=== PATIENT | male | born 1955 | race Caucasian/White ===

== ENCOUNTER 2020-03-06 09:19 | Observation (INO) | payer MEDICARE, MEDICAID ==
[~2020-03-06] VITALS: Ht 175.3 cm; Wt 113.4 kg
[2020-03-06] VITALS (12 sets, daily range): BP systolic 97–167; BP diastolic 61–75
--- NOTE | ~2020-03-06 | H ---
[address] [address] HISTORY AND PHYSICAL Name: YING MAHAN Room: [address] Bam Hewitt#: [id number] Admission: 03/06/20 Attend Phys: Fab Rosario MD Discharge: 03/07/20 Date of : 53 Report #: [id number] THIS REPORT FOR: cc: Singh Freeman MD, Anthony MD ~ [facility],Medical Records Staff Please refer to the History and Physical performed in the physician's office. By: 1130Medical Records Staff [facility] /JOE
[~2020-03-06 09:19] MED LIST: ASPIR 8181 MG PO; ATROVENT HFA14 GM INH; CARVEDILOL12.5 MG PO; CEFDINIR300 MG PO; CRESTOR20 MG PO; EFFIENT10 MG PO; GLIPIZIDE 10 MG10 MG PO; LEVEMIR100 UNIT/1; LOSARTAN POTAS100 MG PO; NASONEX17 GM NASAL; NEURONTIN100 MG PO; NITROGLYCERIN0.4 MG SUBLING; NOVOLOG100 UNIT/M SUBQ; ROSUVASTATIN CA20 MG PO; TRAMADOL 50 MG50 MG PO
[2020-03-06 09:55] LABS: HEMATOCRIT 27.1 % (42.0-52.0); HEMOGLOBIN 9.4 gm/dL (14.0-18.0); MCH 31.1 pg (26.0-34.0); MCHC 34.5 g/dL (28.0-37.0); MPV 7.6 fl. (7.2-11.1); RBC 3.02 mil/uL (4.50-6.00); RDW-CV 13.6 % (10.5-14.5)
[2020-03-06 10:07] LABS: APTT 28.4 Seconds (25.0-31.3); INR 1.1; PROTIME 11.4 Seconds (9.20-11.50)
[2020-03-06 10:08] LABS: ALBUMIN 3.5 g/dL (3.4-5.0); ALKALINE PHOSPHATASE 81 U/L (46-116); ANION GAP 15 mmol/L (7-16); BUN 57 mg/dL (7-18); CALCIUM 9.2 mg/dL (8.5-10.1); CHLORIDE 106 mmol/L (98-107); CO2 17 mmol/L (21-32); CREATININE 3.6 mg/dL (0.6-1.3); GLUCOSE 159 mg/dL (70-99); POTASSIUM 5.3 mmol/L (3.5-5.1); SERUM ASSESSMENT Clear; SGOT 21 U/L (15-37); SGPT 28 U/L (30-65); SODIUM 138 mmol/L (136-145); TOTAL BILIRUBIN 0.2 mg/dL (<0.1-1.0); TOTAL PROTEIN 7.4 g/dL (6.4-8.2)
[2020-03-06 10:20] LABS: CHOLESTEROL 92 mg/dL (<200); HDL CHOLESTEROL 31 mg/dL (>40); LDL CHOLESTEROL 26 mg/dL (<100); TRIGLYCERIDE 179 mg/dL (<150); VLDL 36 mg/dL (<40)
[2020-03-06] MEDS ORDERED: ASA81BEC PO (10:25)
[2020-03-06] MEDS ORDERED: NEURONTIN100 MG PO (10:26)
[2020-03-06] MEDS ORDERED: CARVEDILOL12.5 MG PO (10:26)
[2020-03-06] MEDS ORDERED: GLIPIZIDE 10 MG10 MG PO (10:27)
[2020-03-06] MEDS ORDERED: GABAPENTIN100 MG PO (10:27)
[2020-03-06] MEDS ORDERED: NOVOLOG100 UNIT/M SUBQ (10:28)
[2020-03-06] MEDS ORDERED: COZAAR 25 MG TA25 M2 PO (10:28)
[2020-03-06] MEDS ORDERED: LEVEMIR100 UNIT/1 SUBQ (10:28)
[2020-03-06] MEDS ORDERED: ROSUVASTATIN CA20 MG PO (10:29)
[2020-03-06] MEDS ORDERED: NASONEX17 GM NASAL (10:29)
[2020-03-06] MEDS ORDERED: EFFIENT10 MG PO (10:29)
[2020-03-06] MEDS ORDERED: TRAMADOL 50 MG50 MG PO (10:31)
[2020-03-06] MEDS ORDERED: HYDROCODON-ACE1 EAC7 PO (10:31)
--- NOTE | 2020-03-06 12:55 | EKG ---
[place] [address] ELECTROCARDIOGRAM REPORT Name: YING MAHAN Room: [facility]#: [id number] Admission: 03/06/20 Attend Phys: Fab Rosario, Discharge: Date of : 53 Date of Service: 03/06/20 1039 Report #: [id number] THIS REPORT FOR: //name// [facility] Test Date: 2020-03-06 Test Time: 10:39:58 Pat Name: YING MAHAN Department: Room: Gender: Quartz Mounter: : 1955 Requested By: Fab Rosario Order Number: [id number] Reading MD: Fab Rosario Measurements Intervals [place] Rate: 50 P: 49 IA: 156 QRS: 73 QRSD: 95 T: 82 QT: 453 QTc: 414 Interpretive Statements Sinus rhythm No previous ECG available for comparison Electronically Signed On 03-06-2020 12:55:28 EXTRUSION DIE TEMPLATE MAKER by Fab Rosario [email or web address] <ELECTRONICALLY SIGNED> By: Fab Rosario MD, [facility] 03/06/20 1255 1039 1039 Fab Rosario MD, FACC /EPI
--- NOTE | 2020-03-06 15:43 | EKG ---
[place] [address] ELECTROCARDIOGRAM REPORT Name: KALLIYING Tal Room: [address]R.#: [id number] Admission: 03/06/20 Attend Phys: Fab Rosario, Discharge: Date of : 53 Date of Service: 03/06/20 1425 Report #: [id number] THIS REPORT FOR: //name// [facility] Test Date: 2020-03-06 Test Time: 14:25:28 Pat Name: YING MAHAN Department: Room: 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 Traffic Control Specialist: VIRGILIO : 1955 Requested By: Fab Rosario Order Number: [id number] Reading MD: Fab Rosario Measurements Intervals [place] Rate: 57 P: 52 MN: 152 QRS: 75 QRSD: 94 T: 58 QT: 441 QTc: 430 Interpretive Statements Sinus rhythm RSR' in V1 or V2, probably normal variant Compared to ECG 03/06/2020 10:39:58 RSR' in V1 or V2 now present Electronically Signed On 03-06-2020 15:43:15 CRUSHED STONE GRADER by Fab Rosario [email or web address] <ELECTRONICALLY SIGNED> By: Fab Rosario MD, FACC 03/06/20 1543 1425 1425 Fab Rosario MD, [facility] /EPI
[2020-03-07] VITALS: BP 113/63
[2020-03-07 04:00] VITALS: BP 143/76
[2020-03-07 05:32] LABS: CALCIUM 9.3 mg/dL (8.5-10.1); CREATININE 3.5 mg/dL (0.6-1.3)
--- NOTE | 2020-03-07 05:36 | NUR ---
PT IS ABLE TO COMMUNICATE HIS NEEDS TO STAFF WITH ONLY MINOR DIFFICULTY; HE IS LEGALLY BLIND. HE HAS DENIED THE NEED FOR PAIN MEDICATION UP TO THIS TIME. RT GROIN CATH SITE HAS BEEN C/D/I UP TO THIS TIME. POSSIBLE DISCHARGE TODAY.
[2020-03-07 05:39] LABS: POTASSIUM 4.3 mmol/L (3.5-5.1)
[2020-03-07 08:00] VITALS: BP 143/68
[2020-03-07 09:50] VITALS: BP 143/76
--- NOTE | 2020-03-07 09:50 | NUR ---
CM SPOKE TO THE PT TO DISCUSS CM ASSESSMENT. PT A&O, AND INDEPENDENT WITH ADL'S. PT INFORMS THAT HE IS LEGALLY BLIND. PT RESIDES AT HOME ALONE. 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 PT USES A CANE FOR MOBILITY. PT USES A CPAP AT REST. PT HAS PAST HX OF HH WITH [facility]. PT HAS 0 HX OF SNF. CM WILL REMAIN AVAILABLE TO ASSIST AND FOLLOW NEEDED.
--- NOTE | 2020-03-07 11:08 | NUR ---
ASSUMED CARE OF PATIENT THIS AM AT 0730. PATIENT IS ALERT AND ORIENTED X 4. HE DENIES PAIN AND DISCOMFORT. CATH SITE INTACT. TELE SHOWS NSR. DR COPE IN TO ROUND AND DISCHARGE ORDERS WERE WRITTEN. PATIENT IS TO DISCHARGE TO HOME.
[2020-03-07 11:13] VITALS: BP 143/76
--- NOTE | 2020-03-07 14:27 | EKG ---
[place] [address] ELECTROCARDIOGRAM REPORT Name: YING MAHAN Room: [address]#: [id number] Admission: 03/06/20 Attend Phys: Fab Rosario, Discharge: 03/07/20 Date of : 53 Date of Service: 03/06/20 1647 Report #: [id number] THIS REPORT FOR: //name// [facility] Test Date: 2020-03-06 Test Time: 16:47:04 Pat Name: YING MAHAN Department: Room: [address] Gender: M Emergency Medicine Medical Director: RADHA : 1955 Requested By: Fab Rosario Order Number: [id number] Dakota MD: Ozzie Larsen Measurements Intervals [place] Rate: 67 P: 61 MI: 154 QRS: 75 QRSD: 98 T: 77 QT: 427 QTc: 451 Interpretive Statements Sinus rhythm Nonspecific T abnormalities Compared to ECG 03/06/2020 14:25:28 T-wave abnormality now present Electronically Signed On 03-07-2020 14:26:59 GLASS ENAMEL MIXER by Ozzie Larsen [email or web address] <ELECTRONICALLY SIGNED> By: Ozzie Larsen MD, [facility] 03/07/20 1426 1647 1647 Ozzie Larsen MD, [facility] /EPI
--- NOTE | 2020-03-07 14:31 | EKG ---
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 Forming Machine Feeder: CMKLOTZ : 1955 Requested By: Fab Rosario Order Number: [id number] Dakota MD: Ozzie Larsen Measurements Intervals [place] Rate: 80 P: 63 MS: 150 QRS: 68 QRSD: 90 T: QT: 389 QTc: 449 Interpretive Statements Sinus rhythm Borderline T wave abnormalities Compared to ECG 03/06/2020 14:25:28 T-wave abnormality now present Electronically Signed On 03-07-2020 14:31:40 CHAINMAN by Ozzie Larsen [email or web address] <ELECTRONICALLY SIGNED> By: Ozzie Larsen MD, [facility] 03/07/20 1431 0751 0751 Ozzie Larsen MD, [facility] /EPI
--- NOTE | 2020-03-07 14:40 | CARD ---
[address] [address] CARDIAC CATH REPORT Name: YING MAHAN Room: [address] Bam Hewitt#: [id number] Admission: 03/06/20 Attend Phys: Fab Rosario MD Discharge: 03/07/20 Date of : 53 Report #: [id number] THIS REPORT FOR: cc: Singh Freeman MD, Anthony MD ~ Ozzie Larsen MD [facility] ADDENDUM APPROVED REPORT Study performed: 03/06/2020 09:53:55 Patient Details Patient Status: Out-Patient Room #: Event Personnel Dr. Larsen Hot Die Press Operator, Dr. Rosario Theoretical Physics Teacher, Elyssa Sandhu RN Circulate, Tramaine Mora RTR Scrub, Wilfrid Caldwell GRAVITY METER OBSERVER Monitor Procedures Performed Right femoral artery access; Selective coronary arteriography; PCI with a JUVENAL deployed in the LAD and PTCA of the first diagonal Indication Chest pain Risk Factors Hypercholesterolemia, Hypertension Previous Procedures/Diagnoses Previous PCI Admission/Lab Medications/Medications given during procedure Angiomax 17 ml IV bolus, Angiomax 22.2 ml per hr IV gtt, Effient 30 mg PO Procedure Narrative The patient was brought electively to the Cardiac Catheterization Laboratory and was prepped and draped in a sterile manner. The right femoral was infiltrated with 2% Lidocaine subcutaneous anesthesia. A 6 Trinidadian sheath was inserted into the right femoral artery. Coronary angiography was performed using coronary diagnostic catheters. The left coronary system was accessed and visualized with a Diagnostic catheter. Pre-demployment femoral angiogram was performed . Closure [address] [address] CARDIAC CATH REPORT Name: YING MAHAN Room: [address] Bam Hewitt#: [id number] Admission: 03/06/20 Attend Phys: Fab Rosario MD Discharge: 03/07/20 Date of : 53 Report #: [id number] device was deployed with a 6 Fr Angioseal. The patient tolerated the procedure well and there were no complications associated with the procedure. There was no hematoma. Intraoperative Conscious Sedation Sedation start time: 11:24 Case end Time: 12:00 Fentanyl 25.0 mcg Versed 1.0 mg Fluoro Time: 10.5 minutes Dose: DAP 640381 cGycm2 2024 mGy Contrast Type and Amount: Visipaque 140 ml Diagnostic Cath Left Main 0% now LAD 75% tubular proximalmid LAD stenosis with 90% ostial first diagonal stenosis Circumflex 40% narrowing the proximal portion of the first marginal branch of the nondominant circumflex Right Coronary Large dominant vessel with widely patent stent in the proximal portion of the posterior descending branch with 70% mid posterior descending branch stenosis Left Ventriculography Left Ventriculography was not performed. Hemodynamics The aortic pressure is 95/70 mmHg with a mean of 80 mmHg. PCI Technique Lesion Anticoagulation was achieved with Angiomax. Percutaneous coronary intervention was performed on the Proximalmid LAD. The lesion stenosis prior to intervention was 75% with MICHELLE 3 flow. A 6 Trinidadian XB LAD 3.5 Guide Catheter was used to engage the Left ostium. A 014 Prowater flex Interventional Guidewire was used to cross the lesion. BALLOON DILATION A Balloon catheter 2.75 x 15 mm trek was inserted and inflated up to 18atm for 15seconds. STENT DEPLOYMENT A drug-eluting stent 3.0 x 18 mm Red was inserted and inflated up to 15atm for 10seconds. [place] [address] CARDIAC CATH REPORT Name: YING MAHAN [address] [id number] Admission: 03/06/20 Attend Phys: Fab Rosario MD Discharge: 03/07/20 Date of : 53 Report #: [id number] Final angiography reveals 10 % stenosis with MICHELLE 3 flow. PCI Technique Lesion 2 Percutaneous Coronary Intervention was performed on the First diagonal branch of the LAD. The lesion stenosis prior to intervention was 90% with MICHELLE 3 flow. Balloon Dilation A Balloon catheter 2.25 x 12 mm trek was inserted and inflated up to 22atm for 15seconds. Final angiography reveals 40 % stenosis with MICHELLE 3 flow. Conclusion 1. Significant coronary artery disease characterized by the following: A 75% tubular proximalmid LAD stenosis with 90% ostial first diagonal stenosis B 40% narrowing of the proximal portion of the first marginal branch of the nondominant circumflex C large dominant right coronary artery with a widely patent posterior descending branch stent and 70% mid posterior descending branch stenosis 2. Successful PCI with deployment of a drug-eluting stent at site of 75% proximalmid LAD stenosis with 10% residual narrowing and MICHELLE-3 flow to the distal vessel 4. Successful PTCA at the site of 90% ostial first diagonal stenosis with 40% residual narrowing and MICHELLE-3 flow to the distal vessel Recommendations Cardiac Risk Reduction Program Aggressive Medical Therapy Medications Administered [place] [address] CARDIAC CATH REPORT Name: YING MAHAN Room: [address] Bam Hewitt#: [id number] Admission: 03/06/20 Attend Phys: Fab Rosario MD Discharge: 03/07/20 Date of : 53 Report #: [id number] Diagnostic Cath Approved by: Fab Rosario MD Date/Time: 03/06/2020 13:19:54 <ELECTRONICALLY SIGNED> By: Ozzie Larsen MD, [facility] 03/07/20 1440 1440 1440Joshante Larsen MD, FAC /INF
== END 2020-03-07 12:10 | disposition home or self-care (01) ==
LOC: M.CL 09:19 → M.TBA-CV 14:12 → M.2W 14:12
PROVIDERS: ADMIT Internal Medicine Cardiovascular Disease; ATTEND Internal Medicine Cardiovascular Disease
DX: R07.9 Chest pain, unspecified (principal); I10 Essential (primary) hypertension; E78.00 Pure hypercholesterolemia, unspecified

== ENCOUNTER 2020-03-22 16:40 | Emergency (ER) | payer MEDICARE, MEDICAID ==
[~2020-03-22] VITALS: Ht 170.2 cm; Wt 113.4 kg
[~2020-03-22 16:40] MED LIST changes: +ASA81BEC PO; +COZAAR 25 MG TA25 M2 PO; +GABAPENTIN100 MG PO; +HYDROCODON-ACE1 EAC7 PO; +LEVEMIR100 UNIT/1 SUBQ
[2020-03-22 17:03] LABS: URINE BILIRUBIN NEGATIVE (Negative); URINE BLOOD 1+ (Negative); URINE CLARITY CLEAR; URINE COLOR YELLOW; URINE GLUCOSE-RANDOM TRACE (Negative); URINE KETONES NEGATIVE (Negative); URINE LEUKOCYTES-REFLEX NEGATIVE (Negative); URINE NITRITE-REFLEX NEGATIVE (Negative); URINE PROTEIN 2+ (Negative); URINE UROBILINOGEN 0.2 E.U./dl (0.2-1.0)
[2020-03-22 17:10] LABS: SQUAMOUS 0-3 Few /LPF (0-3)
[2020-03-22 17:12] LABS: CASTS None Seen /LPF (None Seen); CRYSTALS None Seen /LPF (None Seen); MUCUS None Seen strn/LPF (None Seen); URINE RBC 0-2 Rare /HPF (0-2); URINE WBC-REFLEX None Seen /HPF (0-5)
[2020-03-22 17:30] LABS: ABSOLUTE BASOPHILS 0.1 thou/uL (0.0-0.2); ABSOLUTE EOSINOPHILS 0.1 thou/uL (0.0-0.7); ABSOLUTE MONOCYTES 0.6 thou/uL (0.0-1.2); ABSOLUTE NEUTROPHILS 3.4 thou/uL (1.6-8.1); EOSINOPHILS 1.7 %; HEMATOCRIT 27.2 % (42.0-52.0); HEMOGLOBIN 9.6 gm/dL (14.0-18.0); MCH 30.9 pg (26.0-34.0); MCHC 35.1 g/dL (28.0-37.0); MCV 87.9 fL (80.0-100.0); MONOCYTES 11.8 %; MPV 7.6 fl. (7.2-11.1); NUCLEATED RBCS 0 /100WBC; PLATELET COUNT* 210 thou/uL (150-400); POLYS 66.5 %; RDW-CV 12.8 % (10.5-14.5); WBC 5.1 thou/uL (4.0-11.0)
[2020-03-22 17:39] LABS: CALCIUM 8.8 mg/dL (8.5-10.1); CREATININE 3.4 mg/dL (0.6-1.3); POTASSIUM 4.3 mmol/L (3.5-5.1)
[2020-03-22 17:43] LABS: APTT 28.4 Seconds (25.0-31.3); INR 1.1; PROTIME 11.3 Seconds (9.20-11.50)
[2020-03-22 17:54] LABS: ALBUMIN 3.4 g/dL (3.4-5.0); CK-MB MASS 2.4 ng/mL (<0.5-3.6); TOTAL BILIRUBIN 0.3 mg/dL (<0.1-1.0); TOTAL PROTEIN 7.7 g/dL (6.4-8.2)
[2020-03-22 18:15] VITALS: BP 172/90
[2020-03-22] MEDS ORDERED: ZOFRAN ODT4 MG SUBLING (18:17)
--- NOTE | 2020-03-23 12:58 | EKG ---
[place] [address] ELECTROCARDIOGRAM REPORT Name: YING MAHAN Room: [facility]#: [id number] Admission: 03/22/20 Attend Phys: Discharge: 03/22/20 Date of : 53 Date of Service: 03/22/201651 Report #: [id number] THIS REPORT FOR: //name// [facility] ED Test Date: 2020-03-22 Test Time: 16:52:56 Pat Name: YING MAHAN Department: Room: Gender: Reports Developer: [facility] : 1955 Requested By: Juan Salguero Order Number: [id number] MD: Ozzie Larsen Measurements Intervals [place] Rate: 91 P: MN: 172 QRS: 67 QRSD: 92 T: 92 QT: 371 QTc: 457 Interpretive Statements Sinus rhythm Baseline artifact Minor IVCD right Compared to ECG 03/07/20 RSR' in V1 or V2 now present T-wave abnormality no longer present Electronically Signed On 03-23-2020 12:58:13 POND SCALER by Ozzei Larsen [email or web address] <ELECTRONICALLY SIGNED> By: Ozzie Larsen MD, FACC 03/23/20 1258 1652 1652 Ozzie Larsen MD, [facility] /EPI
== END 2020-03-22 18:15 | disposition home or self-care (01) ==
LOC: M.ERS 16:40
PROVIDERS: Family Medicine
DX: R42 Dizziness and giddiness (principal); R11.2 Nausea with vomiting, unspecified; Z20.828 Contact with and (suspected) exposure to other viral communicable diseases; I13.10 Hypertensive heart and chronic kidney disease without heart failure, with stage 1 through stage 4 chronic kidney disease, or unspecified chronic kidney disease; E11.22 Type 2 diabetes mellitus with diabetic chronic kidney disease; N18.9 Chronic kidney disease, unspecified; E78.00 Pure hypercholesterolemia, unspecified; Z95.5 Presence of coronary angioplasty implant and graft

== ENCOUNTER 2020-06-07 14:16 | Emergency (ER) | payer MEDICARE, MEDICAID ==
[~2020-06-07] VITALS: Ht 175.3 cm; Wt 113.4 kg
[~2020-06-07 14:16] MED LIST changes: +ZOFRAN ODT4 MG SUBLING
[2020-06-07 16:11] LABS: ABSOLUTE BASOPHILS 0.1 thou/uL (0.0-0.2); ABSOLUTE EOSINOPHILS 0.2 thou/uL (0.0-0.7); ABSOLUTE LYMPHOCYTES 1.2 thou/uL (0.8-5.3); ABSOLUTE MONOCYTES 0.4 thou/uL (0.0-1.2); BASOPHILS 0.8 %; EOSINOPHILS 2.8 %; HEMATOCRIT 28.3 % (42.0-52.0); HEMOGLOBIN 9.4 gm/dL (14.0-18.0); LYMPHOCYTES 15.5 %; MCH 29.4 pg (26.0-34.0); MCHC 33.4 g/dL (28.0-37.0); MPV 8.6 fl. (7.2-11.1); NUCLEATED RBCS 0 /100WBC; PLATELET COUNT* 194 thou/uL (150-400); POLYS 75.9 %; RBC 3.21 mil/uL (4.50-6.00); RDW-CV 13.7 % (10.5-14.5); WBC 7.9 thou/uL (4.0-11.0)
[2020-06-07 16:15] LABS: CALCIUM 8.8 mg/dL (8.5-10.1); CREATININE 2.9 mg/dL (0.6-1.3); POTASSIUM 4.9 mmol/L (3.5-5.1)
[2020-06-07 16:23] LABS: INR 1.1; PROTIME 11.3 Seconds (9.20-11.50)
[2020-06-07 16:26] LABS: ALBUMIN 3.6 g/dL (3.4-5.0); TOTAL BILIRUBIN 0.4 mg/dL (<0.1-1.0); TOTAL PROTEIN 7.6 g/dL (6.4-8.2)
[2020-06-07 16:59] VITALS: BP 174/88
--- NOTE | 2020-06-08 11:13 | EKG ---
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: DADA : 1955 Requested By: Juan Salguero Order Number: [id number] Dakota MD: Maco Gomez Measurements Intervals [place] Rate: 78 P: 46 CA: 140 QRS: 68 QRSD: 89 T: QT: 396 QTc: 452 Interpretive Statements Sinus rhythm RSR' in V1 or V2, probably normal variant Borderline T abnormalities, lateral leads Compared to ECG 06/07/2020 15:56:09 No significant changes Electronically Signed On 06-08-2020 11:13:40 CDT by Maco Gomez [email or web address] <ELECTRONICALLY SIGNED> By: Maco oGmez MD, FAC 06/08/20 1113 1557 1557 Maco Gomez MD, [facility] /EPI
--- NOTE | 2020-06-08 11:13 | EKG ---
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: DADA : 1955 Requested By: Juan Salguero Order Number: [id number] MD: Maco Gomez Measurements Intervals [place] Rate: 76 P: 52 IA: 147 QRS: 72 QRSD: 91 T: 117 QT: 426 QTc: 480 Interpretive Statements Sinus rhythm RSR' in V1 or V2, probably normal variant Nonspecific T abnormalities, lateral leads Borderline prolonged QT interval Compared to ECG 03/22/2020 16:52:56 T-wave abnormality now present Electronically Signed On 06-08-2020 11:13:23 CDT by Maco Gomez [email or web address] <ELECTRONICALLY SIGNED> By: Maco Gomez MD, [facility] 06/08/20 1113 1556 1556 Maco Gomez MD, [facility] /EPI
== END 2020-06-07 17:00 | disposition home or self-care (01) ==
LOC: M.ERS 14:16
PROVIDERS: Family Medicine
DX: R06.00 Dyspnea, unspecified (principal); R53.1 Weakness; E11.22 Type 2 diabetes mellitus with diabetic chronic kidney disease; I12.9 Hypertensive chronic kidney disease with stage 1 through stage 4 chronic kidney disease, or unspecified chronic kidney disease; N18.9 Chronic kidney disease, unspecified; I25.2 Old myocardial infarction; E78.00 Pure hypercholesterolemia, unspecified; I25.10 Atherosclerotic heart disease of native coronary artery without angina pectoris; Z95.5 Presence of coronary angioplasty implant and graft; Z79.899 Other long term (current) drug therapy; Z79.2 Long term (current) use of antibiotics; Z79.4 Long term (current) use of insulin; Z79.82 Long term (current) use of aspirin

== ENCOUNTER → 2020-09-13 | Outpatient (CLI) | payer MEDICARE, MEDICAID | LOC: M.ULTRA 08:35 | PROVIDERS: ATTEND Internal Medicine | DX: N28.1 Cyst of kidney, acquired (principal); N18.4 Chronic kidney disease, stage 4 (severe) ==

== ENCOUNTER 2020-09-21 10:34 | Inpatient (IN) | payer MEDICARE, MEDICAID ==
[2020-09-21] VITALS (7 sets, daily range): BP systolic 74–129; BP diastolic 34–90
[~2020-09-21] VITALS: Ht 175.3 cm; Wt 112.5 kg
--- NOTE | ~2020-09-21 | H ---
[address] [address] HISTORY AND PHYSICAL Name: YING MAHAN Room: [address] [place] .R.#: [id number] Admission: 09/21/20 Attend Phys: Ozzie Larsen MD, Discharge: 09/28/20 Date of : 53 Report #: [id number] THIS REPORT FOR: cc: Singh Freeman MD, Anthony MD [facility],Medical Records Staff ~ For History and Physical please refer to the consultation note in the patient's medical record. By: 1121Medical Records Staff ABELARDO /JOE
--- NOTE | ~2020-09-21 | TST ---
[facility] [address] [place] [address] TREADMILL STRESS TEST Name: YING MAHAN Room: [address] IN ..#: [id number] Admission: 09/21/20 Attend Phys: Ashely Boles Discharge: Date of : 53 Date of Service: 09/22/20 1057 Report #: [id number] THIS REPORT FOR: cc: Singh Freeman MD, Anthony MD Holkins,Ozzie Ponce MD [facility] ~ DATE OF SERVICE: 09/22/2020 PROCEDURE PERFORMED: Placement of temporary transvenous pacemaker via the right femoral approach. TECHNIQUE: After careful preparation and draping of the right femoral site, local anesthesia was achieved by injecting 1% lidocaine. Utilizing the Seldinger technique, a 5-Luxembourger sheath was inserted into the right femoral artery. I then advanced a 5-Luxembourger balloon-tipped temporary pacing catheter via the right femoral approach positioning tip of the right ventricular apex after holding it in that position with the balloon tipped catheter inflated. The balloon was deflated. The threshold was checked and there was appropriate capture at 0.3 volts. Pacemaker was left in the demand mode, rate 70, voltage 5 millivolts. The previously utilized transcutaneous pacemaker was turned off. The catheter and sheath were sutured into position. A sterile dressing was applied to the right femoral site. IMPRESSION: Placement of a temporary transvenous pacemaker via the right femoral approach. By: 1057 1206 Ozzie Larsen MD, FACC /nt
[2020-09-21 10:55] LABS: ABSOLUTE BASOPHILS 0.1 thou/uL (0.0-0.2); ABSOLUTE EOSINOPHILS 0.3 thou/uL (0.0-0.7); ABSOLUTE LYMPHOCYTES 2.1 thou/uL (0.8-5.3); ABSOLUTE MONOCYTES 0.7 thou/uL (0.0-1.2); ABSOLUTE NEUTROPHILS 7.3 thou/uL (1.6-8.1); BASOPHILS 0.7 %; EOSINOPHILS 2.6 %; HEMATOCRIT 26.3 % (42.0-52.0); HEMOGLOBIN 9.4 gm/dL (14.0-18.0); LYMPHOCYTES 20.1 %; MCH 31.1 pg (26.0-34.0); MCHC 35.6 g/dL (28.0-37.0); MCV 87.4 fL (80.0-100.0); MONOCYTES 6.7 %; MPV 9.5 fl. (7.2-11.1); NUCLEATED RBCS 0 /100WBC; PLATELET COUNT* 223 thou/uL (150-400); POLYS 69.9 %; RBC 3.01 mil/uL (4.50-6.00); WBC 10.4 thou/uL (4.0-11.0)
[2020-09-21 11:40] LABS: CALCIUM 8.3 mg/dL (8.5-10.1); CREATININE 5.8 mg/dL (0.6-1.3)
[2020-09-21 11:50] LABS: ALBUMIN 3.8 g/dL (3.4-5.0); MAGNESIUM 2.9 mg/dL (1.8-2.4); TOTAL BILIRUBIN 0.4 mg/dL (<0.1-1.0); TOTAL PROTEIN 7.4 g/dL (6.4-8.2)
[2020-09-21 11:57] LABS: POTASSIUM 6.6 mmol/L (3.5-5.1)
--- NOTE | 2020-09-21 15:18 | EKG ---
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: BRENT : 1955 Requested By: Huseyin Up Order Number: [id number] MD: Ozzie Larsen Measurements Intervals [place] Rate: 33 P: GA: QRS: 69 QRSD: 100 T: 85 QT: 546 QTc: 405 Interpretive Statements Atrial fibrillation with a markedly bradycardic ventricular response Nonspecific T abnormalities, lateral leads Compared to ECG 06/07/2020 15:57:16 Sinus rhythm no longer present T-wave abnormality still present Heart rate has decreased markedly Electronically Signed On 09-21-2020 15:18:29 CDT by Ozzie Larsen [email or web address] <ELECTRONICALLY SIGNED> By: Ozzie Larsen MD, [facility] 09/21/20 1518 1040 1040 Ozzie Larsen MD, [facility] /EPI
--- NOTE | 2020-09-21 16:26 | 2DMMODE ---
[place] [address] 2 D/M-MODE ECHOCARDIOGRAM Name: YING MAAHN Room: [address] M.R.#: [id number] Admission: 09/21/20 Attend Phys: Ashely Boles Discharge: Date of : 53 Date of Service: 09/21/20 1625 Report #: [id number] THIS REPORT FOR: cc: Singh Freeman MD, Anthony MD Holkins, John M. MD [facility] ~ APPROVED REPORT Study performed: 09/21/2020 14:53:52 EXAM: Comprehensive 2D, Doppler, and color-flow Echocardiogram Patient Location: CV BSA: 2.26 HR: 70 bpm BP: 122/68 mmHg Other Information Study Quality: Adequate Indications Chest Pain 2D Dimensions IVSd: 12.80 (7-11mm) LVOT Diam: 18.92 (18-24mm) LVDd: 50.20 mm PWd: 11.28 (7-11mm) Ascending Ao: 31.07 (22-36mm) LVDs: 33.04 (25-40mm) Aortic Root: 31.73 mm Volumes Left Atrial Volume (Systole) LA ESV Index: 32.00 mL/m2 Aortic Valve AoV Peak Dimas.: 2.04 m/s AO Peak Gr.: 16.60 mmHg LVOT Max P.14 mmHg AO Mean Gr.: 9.14 mmHg LVOT Mean P.96 mmHg LVOT Max V: 1.02 m/s AO V2 VTI: 33.97 cm LVOT Mean V: 0.64 m/s MARJAN (VTI): 1.63 cm2 LVOT V1 VTI: 19.67 cm Mitral Valve MV Mean Gr.: 4.23 mmHg E/A Ratio: 4.85 [place] [address] 2 D/M-MODE ECHOCARDIOGRAM Name: YING MAHAN Room: [address]#: [id number] Admission: 09/21/20 Attend Phys: Ashely Boles Discharge: Date of : 53 Date of Service: 09/21/20 1625 Report #: [id number] MV Decel. Time: 157.04 ms MV E Max Dimas.: 1.78 m/s MV PHT: 45.54 ms MVA (PHT): 4.83 cm2 TDI E/Lateral E': 25.43 E/Medial E': 25.43 Medial E' Dimas.: 0.07 m/s Lateral E' Dimas.: 0.07 m/s Pulmonary Valve PV Peak Dimas.: 0.82 m/s PV Peak Gr.: 2.68 mmHg Tricuspid Valve RAP Estimate: 5.00 mmHg TR Peak Gr.: 29.71 mmHg RVSP: 34.71 mmHg PA Pressure: 34.71 mmHg Left Ventricle The left ventricle is normal size. There is normal LV segmental wall motion. There is normal left ventricular wall thickness. The left ventricular systolic function is normal. The left ventricular ejection fraction is within the normal range. LVEF is 50-55%. Right Ventricle The right ventricle is normal size. The right ventricular systolic function is normal. Atria The left atrium size is normal. The right atrium size is normal. Aortic Valve Moderate aortic valve sclerosis. Trace aortic regurgitation. Mild aortic stenosis. Mitral Valve There is mitral annular calcification. Mild to moderate mitral regurgitation. No evidence of mitral valve stenosis. Tricuspid Valve The tricuspid valve is normal in structure. Mild tricuspid regurgitation. Pulmonic Valve The pulmonary valve is normal in structure. [place] [address] 2 D/M-MODE ECHOCARDIOGRAM Name: YING MAHAN Room: [address]#: [id number] Admission: 09/21/20 Attend Phys: Ashely Boles Discharge: Date of : 53 Date of Service: 09/21/20 1625 Report #: [id number] valvular regurgitation. Great Vessels The aortic root is normal in size. IVC is normal in size and collapses >50% with inspiration. Pericardium There is no pericardial effusion. <Conclusion> The left ventricle is normal size. There is normal left ventricular wall thickness. The left ventricular systolic function is normal. The left ventricular ejection fraction is within the normal range. LVEF is 50-55%. The right ventricle is normal size. The left atrium size is normal. Moderate aortic valve sclerosis. Trace aortic regurgitation. Mild aortic stenosis. There is mitral annular calcification. Mild to moderate mitral regurgitation. No evidence of mitral valve stenosis. The tricuspid valve is normal in structure. Mild tricuspid regurgitation. IVC is normal in size and collapses >50% with inspiration. There is normal LV segmental wall motion. <ELECTRONICALLY SIGNED> By: Ozzie Larsen MD, FACC 09/21/20 1625 1625 1625 Ozzie Larsen MD, FACC /INF
[2020-09-22 01:25] LABS: CREATININE 5.6 mg/dL (0.6-1.3)
[2020-09-22 01:28] LABS: POTASSIUM 6.9 mmol/L (3.5-5.1)
[2020-09-22 01:30] VITALS: BP 98/62
[2020-09-22 01:42] LABS: ALBUMIN 3.7 g/dL (3.4-5.0); TOTAL BILIRUBIN 0.3 mg/dL (<0.1-1.0); TOTAL PROTEIN 7.4 g/dL (6.4-8.2)
[2020-09-22 02:13] LABS: HEMATOCRIT 25.5 % (42.0-52.0); HEMOGLOBIN 8.8 gm/dL (14.0-18.0); MCH 30.5 pg (26.0-34.0); MCHC 34.4 g/dL (28.0-37.0); MCV 88.8 fL (80.0-100.0); MPV 9.7 fl. (7.2-11.1); RBC 2.88 mil/uL (4.50-6.00); RDW-CV 13.9 % (10.5-14.5); WBC 10.1 thou/uL (4.0-11.0)
[2020-09-22 06:20] VITALS: BP 151/73
[2020-09-22 08:20] VITALS: BP 157/75
[2020-09-22 17:11] VITALS: BP 137/68
[2020-09-22 17:25] LABS: URINE BILIRUBIN NEGATIVE (Negative); URINE BLOOD NEGATIVE (Negative); URINE CLARITY CLEAR; URINE COLOR YELLOW; URINE GLUCOSE-RANDOM 1+ (Negative); URINE KETONES NEGATIVE (Negative); URINE LEUKOCYTES-REFLEX NEGATIVE (Negative); URINE NITRITE-REFLEX NEGATIVE (Negative); URINE PROTEIN 1+ (Negative); URINE UROBILINOGEN 0.2 E.U./dl (0.2-1.0)
[2020-09-22 20:00] VITALS: BP 129/74
[2020-09-23 00:16] VITALS: BP 161/85
[2020-09-23 05:20] VITALS: BP 171/91
[2020-09-23 05:48] LABS: HEMATOCRIT 28.7 % (42.0-52.0); MCH 30.2 pg (26.0-34.0); MCV 86.3 fL (80.0-100.0); MPV 9.5 fl. (7.2-11.1); RBC 3.33 mil/uL (4.50-6.00); RDW-CV 13.8 % (10.5-14.5); WBC 9.5 thou/uL (4.0-11.0)
[2020-09-23 06:00] LABS: CALCIUM 9.1 mg/dL (8.5-10.1); CREATININE 3.3 mg/dL (0.6-1.3); POTASSIUM 4.1 mmol/L (3.5-5.1)
[2020-09-23 06:01] LABS: ANION GAP 12 mmol/L (7-16); BUN 70 mg/dL (7-18); CALCIUM 8.9 mg/dL (8.5-10.1); CHLORIDE 104 mmol/L (98-107); CO2 26 mmol/L (21-32); GLUCOSE 265 mg/dL (70-99); POTASSIUM 4.1 mmol/L (3.5-5.1); SODIUM 142 mmol/L (136-145)
[2020-09-23 06:05] LABS: CREATININE 3.3 mg/dL (0.6-1.3)
[2020-09-23 06:43] LABS: CHOLESTEROL 112 mg/dL (<200); HDL CHOLESTEROL 38 mg/dL (>40); LDL CHOLESTEROL 44 mg/dL (<100); TC:HDL 2.9 Ratio (Not establshd); TRIGLYCERIDE 153 mg/dL (<150); VLDL 31 mg/dL (<40)
[2020-09-23 06:45] LABS: SERUM ASSESSMENT Clear
[2020-09-23 08:00] VITALS: BP 167/99
--- NOTE | 2020-09-23 09:01 | CON ---
[address] [address] CONSULTATION Name: YING MAHAN Room: [address] IN .R.#: [id number] Admission: 09/21/20 Attend Phys: Ozzie Larsen MD, Discharge: Date of : 53 Report #: [id number] THIS REPORT FOR: cc: Singh Freeman MD, Anthony MD Vasudeva, Amita MD ~ DATE OF CONSULTATION: 09/22/2020 NEPHROLOGY CONSULTATION CONSULTING PHYSICIAN: Fab Rosario MD REASON FOR CONSULTATION: Acute kidney injury on chronic kidney disease stage 4, as well as hyperkalemia. REASON FOR ADMISSION: Dizziness. HISTORY OF PRESENT ILLNESS: This is a 65-year-old male with history of being legally blind, coronary artery disease, diabetes, hypertension. He had staged cardiac catheterization in January and February of this year, preserved ejection fraction, chronic kidney disease stage 4, baseline creatinine is 2.8-3, came in with chest pain, dizziness, bradycardia and hypotension yesterday. He was found to be in complete heart block. His potassium was also 6.6, permanent pacemaker was placed yesterday. The patient initially was declining dialysis, but is agreeable to it now. Potassium was 6.6 yesterday afternoon and I was consulted this morning when potassium was 6.9. I did see him 2 weeks ago in my clinic and I ordered some labs, and I put him on some Lasix because he had some lower extremity edema and asked him to modify his diet, but he was consuming a lot of salt. He had changed diet from high sodium diet to a lot of ____ DASH in his diet. He does not use any NSAIDs at home. He was taking losartan at home as well as potassium. He is feeling okay. His creatinine is 5.6. His BUN is 131. His baseline creatinine is 2.8-3. ALLERGIES: No known allergies. REVIEW OF SYSTEMS: As mentioned in history of present illness, otherwise 10-point review of systems are negative. PAST MEDICAL AND SURGICAL HISTORY: Includes type 2 diabetes, hypertension, chronic kidney disease stage 4, baseline creatinine is 2.8-3, dyslipidemia, PA, coronary artery disease, stents. FAMILY HISTORY: Noncontributory. SOCIAL HISTORY: Lives at home by himself. He is legally [place] [address] CONSULTATION Name: YING MAHAN Room: [address]#: [id number] Admission: 09/21/20 Attend Phys: Ozzie Larsen MD, Discharge: Date of : 53 Report #: [id number] smoke or drink alcohol or use illicit drugs. HOME MEDICATIONS: Include Effient, Nitrostat, Coreg, baby aspirin, Zofran, Omnicef, Lasix 40 mg a day which I recently started, losartan, glipizide, tramadol, gabapentin, rosuvastatin, aspirin, hydrocodone, tramadol. PHYSICAL EXAMINATION: VITAL SIGNS: His blood pressure is 151/73, pulse ox 98% on 2 liters of oxygen via nasal cannula, respiratory rate is 19, pulse rate is 92, temperature 35.6. GENERAL: He is a very pleasant, awake, alert, oriented x 3. HEAD AND EYES: Atraumatic, normocephalic. Conjunctivae are normal. EARS, NOSE AND THROAT: Normal ears and nose. Mucous membranes are moist. NECK: There is no JVD. CHEST: Bilaterally clear to auscultation. No crackles or wheezing. CARDIAC: S1, S2 normal. No murmurs. ABDOMEN: Soft, nondistended, nontender. LOWER EXTREMITIES: There is no lower extremity edema. NEUROLOGIC: Grossly intact. PSYCHOLOGIC: Mood and affect seem to be normal. LABORATORY DATA: WBC 7.1, hemoglobin 8.8. Sodium is 132, potassium is 6.9, bicarbonate is 19, BUN is 131, creatinine is 5.6. IMAGING: Chest x-ray was reviewed. ASSESSMENT: 1. Acute kidney injury on chronic kidney disease stage 4. This is likely diabetic and hypertensive nephropathy and acute kidney injury as a result of intravascular volume depletion, losartan use as well as hypotension in the setting of complete heart block. The patient also has severe hyperkalemia on admission, 6.6 and now 6.9. Presenting creatinine of 5.8. Renal ultrasound and UA are pending. 2. Severe hyperkalemia, potassium 6.9 in the setting of potassium use, Lasix use recently, ____ DASH and Benicar and acute kidney injury on top of chronic kidney disease, stage 4. 3. Metabolic acidosis. 4. Hypermagnesemia. 5. Coronary artery disease. The patient presented with complete heart block status post pacemaker placement, 09/21/2020. Cardiology is following. 6. Diabetes type 2. Primary team is treating. 7. Anemia. 8. Hypertension. Blood pressure seems to be controlled. PLAN: [address] [place] [address] CONSULTATION Name: YING MAHAN Room: [address] IN .R.#: [id number] Admission: 09/21/20 Attend Phys: Ozzie Larsen MD, Discharge: Date of : 53 Report #: [id number] 1. The patient is agreeable to dialysis. Risks and benefits of dialysis explained. Ordered medications for management of hyperkalemia. 2. Strict I's and O's, and please make sure he is not retaining urine. 3. Check renal ultrasound and a UA. 4. We will also check serum immunofixation, serum kappa to lambda light chain ratio. 5. Hold off on potassium, Lasix, losartan. 6. Ordered bicarbonate drip. Thank you for this consultation and WE will follow with you. The patient is critically sick. I spent 40 minutes in critical care. This time was spent in chart review, placing orders and care coordination. Discussed with the patient and the patient's nurse. Likelihood of him being ESRD is high. <ELECTRONICALLY SIGNED> By: Jamee Tolentino MD 09/23/20 0901 0817 1023Amil Tolentino MD /nt
[2020-09-23 12:00] VITALS: BP 156/88
--- NOTE | 2020-09-23 13:34 | EKG ---
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 : 1955 Requested By: Maco Gomez Order Number: [id number] Dakota MD: Maco Gomez Measurements Intervals [place] Rate: 113 P: AL: QRS: 60 QRSD: 86 T: 209 QT: 319 QTc: 438 Interpretive Statements Atrial fibrillation Nonspecific T abnormalities, diffuse leads Compared to ECG 09/21/2020 10:40:14 rate has increased Electronically Signed On 09-23-2020 13:34:19 CDT by Maco Gomez [email or web address] <ELECTRONICALLY SIGNED> By: Maco Gomez MD, [facility] 09/23/20 1334 1009 1009 Maco Gomez MD, [facility] /EPI
[2020-09-23 16:00] VITALS: BP 118/58
[2020-09-23 20:00] VITALS: BP 147/89
[2020-09-23 22:06] LABS: IgA 205 mg/dL (61-437); IgG 983 mg/dL (603-1613); IgM 156 mg/dL (20-172)
[2020-09-24] VITALS (14 sets, daily range): BP systolic 94–130; BP diastolic 46–76
[2020-09-24 02:05] LABS: HEPATITIS B SURFACE AG Negative (Negative)
[2020-09-24 02:05] LABS: GLYCOHEMOGLOBIN (HGB A1C) 7.5 % (4.8-5.6)
[2020-09-24 04:32] LABS: CALCIUM 8.3 mg/dL (8.5-10.1); CREATININE 3.4 mg/dL (0.6-1.3); POTASSIUM 4.1 mmol/L (3.5-5.1)
[2020-09-24 05:03] LABS: ABSOLUTE BASOPHILS 0.1 thou/uL (0.0-0.2); ABSOLUTE EOSINOPHILS 0.1 thou/uL (0.0-0.7); ABSOLUTE MONOCYTES 0.8 thou/uL (0.0-1.2); ABSOLUTE NEUTROPHILS 8.6 thou/uL (1.6-8.1); BASOPHILS 0.4 %; EOSINOPHILS 1.1 %; HEMOGLOBIN 9.8 gm/dL (14.0-18.0); LYMPHOCYTES 17.6 %; MCH 30.4 pg (26.0-34.0); MCHC 34.8 g/dL (28.0-37.0); MCV 87.4 fL (80.0-100.0); MPV 9.4 fl. (7.2-11.1); NUCLEATED RBCS 0 /100WBC; PLATELET COUNT* 198 thou/uL (150-400); POLYS 73.9 %; RDW-CV 13.6 % (10.5-14.5); WBC 11.6 thou/uL (4.0-11.0)
--- NOTE | 2020-09-24 05:05 | NUR ---
SLEPT IN BED AND IN CHAIR, RESTLESS TONIGHT. NPO SINCE [place] FOR ADJUSTING PACEMAKER LEADS THIS AM. PT IS AWARE OF THIS. TELEMETRY SHOWING A-FIB. LT CHEST INCISION INTACT WITH STERI STRIPS. PT AWARE OF NOT LIFTING WITH LT ARM OR RAISING IT KUSUM. VOIDED PER URINAL X1, STATES NO PROBLEMS. HS GOALS OF REST AND SAFETY ACHIEVED. HOURLY ROUNDING OBSERVED.
--- NOTE | 2020-09-24 09:53 | EKG ---
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 : 1955 Requested By: Fab Rosario Order Number: [id number] Reading MD: Maco Gomez Measurements Intervals [place] Rate: 102 P: 56 MT: 167 QRS: 60 QRSD: 93 T: 44 QT: 353 QTc: 460 Interpretive Statements Sinus tachycardia Borderline T wave abnormalities Compared to ECG 09/21/2020 10:40:14 Atrial fibrillation no longer present T-wave abnormality still present Electronically Signed On 09-24-2020 9:53:12 CDT by Maco Gomez [email or web address] <ELECTRONICALLY SIGNED> By: Maco Gomez MD, [facility] 09/24/20 0953 0940 9 Maco Gomez MD, [facility] /EPI
--- NOTE | 2020-09-24 14:37 | NUR ---
Pt is A&O. Resides at home alone. lives down the hallway and assists if needed. Dtr also assists with IADLs. Pt is blind. Uses a cane for mobility. Independent with ADLs. Pt has a home cpap. Hx of [facility]. No hx of SNF. Pt to have his pacer repositioned today. Pt had dialysis 2 days ago, uncertain at this time if Pt will need outpt dialysis. CM to follow. Anticipate dc tomorrow.
--- NOTE | 2020-09-24 16:42 | CARD ---
[address] [address] CARDIAC CATH REPORT Name: YING MAHAN Room: [address] ADM IN ..#: [id number] Admission: 09/21/20 Attend Phys: Ozzie Larsen MD, Discharge: Date of : 53 Report #: [id number] THIS REPORT FOR: cc: Singh Freeman MD, Anthony MD Blick, David R. MD [facility] ~ ADDENDUM APPROVED REPORT Study performed: 09/24/2020 10:10:44 Patient Status: In-Patient Room #: 214 Event Personnel: Tramaine Mora RTR Monitor, Ludivina Lord RTR ScrubEdson Tiffany RN RN, Maco Gomez Automotive Shop Foreman Exam: Atrial Lead Reposition Indications: Sick Sinus Syndrome/Tachy Duran Syndrome The patient is a 65 year-old male with a history of Atrial Fibrillation. Patient Info Antiplatelet Therapy: prasugrel Conscious Sedation Start time: 1042 End Time: 1149 Fentanyl 25 mcg Versed 2 mg The patient had a permanent dual chamber pacemaker inserted by Dr. Fab Rosario on September 21, 2020. Post procedure CXR revealed that the active atrial lead was no longer attached to the right atrial appendage and had become dislodged. Procedure The patient underwent informed consent. We discussed the details of the procedure including the risks, which include, but not limited to bleeding, infection, vascular damage, cardiac perforation, and pneumothorax. He understood these risks and was willing to proceed. As such, he was brought to the EP/Cardiac Catheterization laboratory in a fasting and sedated state and prepped and draped in a The patient underwent conscious sedation, with no related complications. The patient was brought to the EP/Cardiac Catheterization laboratory and the left chest and shoulder were prepped and draped in a sterile manner. IV conscious sedation was used throughout procedure with appropriate monitoring and was performed in the presence of [place] [address] CARDIAC CATH REPORT Name: YING MAHAN Room: [address]#: [id number] Admission: 09/21/20 Attend Phys: Ozzie Larsen MD, Discharge: Date of : 53 Report #: [id number] who was an independent trained observer other than the physician performing the procedure. The left subclavian region was infiltrated with 2% Lidocaine subcutaneous anesthesia. A transverse incision was made in the left upper chest cavity. Capturing and sensing thresholds were verified. The [employer]ot[employer] atrial lead was noted under fluoscopy to become unattached to the right atrial appendage, and appeared to be crossing the tricuspid valve and entering the right ventricle. The pacemaker pocket was opened by an incision through the recent incision, and the pacemaker pocket was opened with blunt dissection. The atrial lead sleeve suture was removed, and the lead was retracted into the right atrium. A curved stylet was inserted into the lead, which was advanced to the right atrial appendage, and the screw was reinserted into the right atrial appendage. Electrode Parameters P Wave: 3.5 mv R Wave: 12.2 mv Atrial Threshold: 0.9 v @ 0.4 ms Ventricular Threshold: 0.6 v @ 0.4 ms Atrial Resistance: 526 ohm Ventricular Resistance: 546 ohm Dual Chamber The atrial and ventricular leads were then secured using 0 silk sutures. The subcutaneous pocket was irrigated with ancef antibiotic solution.The atrial and ventricular leads were attached to the appropriate receptacles on the pulse generator and set screws firmly tightened to insure adequate contact and stability. The lead and pulse generator were placed into the subcutaneous pocket. Sharp and sponge counts were confirmed to be correct. At this time the pocket was closed subcutaneously with a 0 Vicryl and the skin was closed with a 4.0 Vicryl. The operative site was dressed in sterile fashion with skin affix and the patient was transferred to the floor in stable condition. Complications The patient tolerated the procedure well and there were no complications associated with the procedure. Findings Specimens Removed: N/A Estimated Blood Loss: less than 5cc A significant amount of clotted blood was removed from the pacemaker pocket which was irrigated with d-stat flowable prior [place] [address] CARDIAC CATH REPORT Name: YING MAHAN Room: [address]#: [id number] Admission: 09/21/20 Attend Phys: Ozzie Larsen MD, Discharge: Date of : 53 Report #: [id number] pacemaker generator back into the pacemaker pocket. Conclusion successful repositioning of the right atrial lead into the right atrial appendage. <ELECTRONICALLY SIGNED> By: Maco Gomez MD, [facility] 09/24/20 164 40 1641Dkat Gomez MD, [facility] /INF
--- NOTE | 2020-09-24 20:00 | NUR ---
RECEIVED REPORT AND ASSUMED CARE OF PT, ASSESSMENT COMPLETED. PT SITTING UP IN CHAIR. IMMOBILIZER TO LT ARM IN PLACE. LT CHEST PACEMAKER INCISION SITE INTACT, BRUISING NOTED. TELEMETRY ON SHOWING SR. DISCUSSED URINATION AND NEED TO MONITOR RETENTION. WILL CONT TO MONITOR AND ASSIST NEEDED.
--- NOTE | 2020-09-24 21:02 | NUR ---
DATA ANALYSIS ASSISTANT REQUESTED STRAIGHT CATH AFTER VOID AND KEEP FREDERICK IN PLACE IF GREATER THAN 160 ML RESIDUAL. PATIENT HAD 15 ML RESIDUAL, NO FREDERICK PLACED AT THIS TIME.
[2020-09-25] VITALS (7 sets, daily range): BP systolic 122–136; BP diastolic 59–69
[2020-09-25 03:43] LABS: HEMATOCRIT 24.9 % (42.0-52.0); HEMOGLOBIN 8.7 gm/dL (14.0-18.0); MCH 30.2 pg (26.0-34.0); MCHC 34.7 g/dL (28.0-37.0); MPV 8.6 fl. (7.2-11.1); RBC 2.86 mil/uL (4.50-6.00); RDW-CV 13.5 % (10.5-14.5); WBC 10.2 thou/uL (4.0-11.0)
[2020-09-25 03:51] LABS: CREATININE 3.9 mg/dL (0.6-1.3)
--- NOTE | 2020-09-25 07:12 | NUR ---
AWAKE OCC SITTING UP IN CHAIR. NO CHANGE IN ASSESSMENT. TELEMETRY SHOWING A-V PACED. LT ARM REMAINS IN IMMOBILIZER. HS GOALS OF REST AND SAFETY ACHIEVED. HOURLY ROUNDING OBSERVED.
--- NOTE | 2020-09-25 09:28 | EKG ---
[place] [address] ELECTROCARDIOGRAM REPORT Name: YING MAHAN Room: [address] ADM IN ..#: [id number] Admission: 09/21/20 Attend Phys: Ashely Boles Discharge: Date of : 53 Date of Service: 09/24/20 1417 Report #: [id number] THIS REPORT FOR: //name// [facility] Test Date: 2020-09-24 Test Time: 14:17:24 Pat Name: YING MAHAN Department: Room: [address] Gender: M Topper Packer: MONICA : 1955 Requested By: Maco Gomez Order Number: [id number] Reading MD: Mars Yo Measurements Intervals [place] Rate: 74 P: 64 CO: 140 QRS: 64 QRSD: 95 T: 203 QT: 447 QTc: 496 Interpretive Statements Sinus rhythm Low voltage, precordial leads RSR' in V1 or V2, probably normal variant Nonspecific T abnormalities, diffuse leads Borderline prolonged QT interval Baseline wander in lead(s) V1 Compared to ECG 09/23/2020 10:09:07 Low QRS voltage now present RSR' in V1 or V2 now present Atrial fibrillation no longer present T-wave abnormality still present Electronically Signed On 09-25-2020 9:28:32 CDT by Mars Yo [email or web address] <ELECTRONICALLY SIGNED> By: Alonso Yo MD, [facility] 09/25/20 0928 16 141 Alonso Yo MD, [facility] /EPI
--- NOTE | 2020-09-25 09:33 | EKG ---
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: KATIE : 1955 Requested By: Maco Gomez Order Number: [id number] Reading MD: Mars Yo Measurements Intervals [place] Rate: 88 P: [place]: 154 QRS: 73 QRSD: 95 T: 224 QT: 407 QTc: 493 Interpretive Statements Atrial-paced complexes Nonspecific T abnormalities, lateral leads Borderline prolonged QT interval Baseline wander in lead(s) V5 Compared to ECG 09/24/2020 14:17:24 Sinus rhythm no longer present T-wave abnormality still present Electronically Signed On 09-25-2020 9:33:33 CDT by Mars Yo [email or web address] <ELECTRONICALLY SIGNED> By: Alonso Yo MD, [facility] 09/25/20 0933 Alonso Yo MD, [facility] /EPI
--- NOTE | 2020-09-25 15:48 | NUR ---
Anticipate dc in a few days. Cards signed off. Renal following for dialysis needs. [facility] [place] [phone] [phone]
[2020-09-26 01:36] VITALS: BP 100/64
[2020-09-26 04:51] LABS: HEMATOCRIT 23.5 % (42.0-52.0); HEMOGLOBIN 8.3 gm/dL (14.0-18.0)
[2020-09-26 05:23] LABS: CALCIUM 8.3 mg/dL (8.5-10.1); CREATININE 3.8 mg/dL (0.6-1.3); POTASSIUM 3.9 mmol/L (3.5-5.1)
[2020-09-26 05:59] VITALS: BP 123/72
--- NOTE | 2020-09-26 10:54 | EKG ---
[place] [address] ELECTROCARDIOGRAM REPORT Name: YING MAHAN Room: [address] ADM IN M.R.#: [id number] Admission: 09/21/20 Attend Phys: Ashely Boles Discharge: Date of : 53 Date of Service: 09/26/20 0939 Report #: [id number] THIS REPORT FOR: //name// [facility] Test Date: 2020-09-26 Test Time: 09:39:39 Pat Name: YING MAHAN Department: Room: [address] Gender: M Packer Insulation: 1886 : 1955 Requested By: Maco Gomez Order Number: [id number] Reading MD: Maco Gomez Measurements Intervals [place] Rate: 83 P: 51 [place]: 149 QRS: 68 QRSD: 99 T: QT: 396 QTc: 466 Interpretive Statements Atrial-paced complexes RSR' in V1 or V2, probably normal variant Nonspecific T abnormalities, lateral leads Compared to ECG 09/25/2020 05:37:36 RSR' in V1 or V2 now present T-wave abnormality still present Electronically Signed On 09-26-2020 10:54:32 CDT by Maco Gomez [email or web address] <ELECTRONICALLY SIGNED> By: Maco Gomez MD, [facility] 09/26/20 1054 0939 Maco Gomez MD, [facility] /EPI
[2020-09-26 12:25] VITALS: BP 134/60
--- NOTE | 2020-09-26 13:04 | NUR ---
THIS DEBARKER OPERATOR IS IN AGREEMENT WITH DOCUMENTED EVAL BY JIGAR MONTANO FOR THIS DAY. LUIS COBURNT
[2020-09-26] MEDS ORDERED: PACERONE 200 M200 M1 PO (13:42)
[2020-09-26 15:08] LABS: KAPPA FREE LIGHT CHAINS 39.7 mg/L (3.3-19.4); LAMBDA FREE LIGHT CHAINS 36.7 mg/L (5.7-26.3)
--- NOTE | 2020-09-26 15:08 | NUR ---
Anticipate dc to home tomorrow with [facility]. Renal continues to follow
[2020-09-26 15:41] VITALS: BP 129/67
[2020-09-26 19:45] VITALS: BP 154/75
[2020-09-27] VITALS (7 sets, daily range): BP systolic 127–149; BP diastolic 67–79
[2020-09-27 04:22] LABS: ABSOLUTE BASOPHILS 0.1 thou/uL (0.0-0.2); ABSOLUTE EOSINOPHILS 0.3 thou/uL (0.0-0.7); ABSOLUTE MONOCYTES 0.6 thou/uL (0.0-1.2); ABSOLUTE NEUTROPHILS 6.8 thou/uL (1.6-8.1); BASOPHILS 0.8 %; EOSINOPHILS 3.1 %; HEMATOCRIT 27.2 % (42.0-52.0); HEMOGLOBIN 9.4 gm/dL (14.0-18.0); LYMPHOCYTES 19.9 %; MCH 30.1 pg (26.0-34.0); MCHC 34.6 g/dL (28.0-37.0); MONOCYTES 6.5 %; MPV 8.4 fl. (7.2-11.1); NUCLEATED RBCS 0 /100WBC; PLATELET COUNT* 189 thou/uL (150-400); POLYS 69.7 %; RBC 3.12 mil/uL (4.50-6.00); RDW-CV 13.4 % (10.5-14.5); WBC 9.8 thou/uL (4.0-11.0)
[2020-09-27 04:35] LABS: CALCIUM 8.6 mg/dL (8.5-10.1); CREATININE 3.7 mg/dL (0.6-1.3)
[2020-09-27 04:40] LABS: ALBUMIN 3.4 g/dL (3.4-5.0); CALCIUM 8.4 mg/dL (8.5-10.1); CREATININE 3.6 mg/dL (0.6-1.3); POTASSIUM 3.9 mmol/L (3.5-5.1); TOTAL BILIRUBIN 0.4 mg/dL (<0.1-1.0); TOTAL PROTEIN 7.1 g/dL (6.4-8.2)
--- NOTE | 2020-09-27 05:24 | NUR ---
ASSUMED PATIENT CARE AT 1900. ASSESSMENT COMPLETED CHARTED. CARDIAC MONITORING IN PLACE. HOURLY ROUNDING IN PLACE FOR PATIENT SAFETY. FALL PRECAUTIONS IN PLACE FOR PATIENT SAFETY. BED LOCKED AND IN LOWEST POSITION. CLWR.
[2020-09-27] MEDS ORDERED: DILTIAZEM 24HR180 M1 PO (12:05)
[2020-09-27] MEDS ORDERED: ELIQUIS2.5 MG PO (12:35)
--- NOTE | 2020-09-27 12:59 | NUR ---
Pt discharging to home today, faxed dc orders and referral to [facility]
--- NOTE | 2020-09-27 17:05 | EKG ---
[place] [address] ELECTROCARDIOGRAM REPORT Name: YING MAHAN Room: [address] ADM IN .R.#: [id number] Admission: 09/21/20 Attend Phys: Ashely Boles Discharge: Date of : 53 Date of Service: 09/27/20 1046 Report #: [id number] THIS REPORT FOR: //name// [facility] Test Date: 2020-09-27 Test Time: 10:46:21 Pat Name: YING MAHAN Department: Room: [address] Gender: M Director Of Food And Beverage Services: catrachito : 1955 Requested By: Maco Gomez Order Number: [id number] Dakota MD: Maco Gomez Measurements Intervals [place] Rate: 77 P: 60 [place]: 165 QRS: 67 QRSD: 99 T: 242 QT: 399 QTc: 452 Interpretive Statements Sinus rhythm Nonspecific T abnormalities, lateral leads Compared to ECG 09/26/2020 09:39:39 Atrial-paced complex(es) or rhythm no longer present T-wave abnormality still present Electronically Signed On 09-27-2020 17:05:30 CDT by Maco Gomez [email or web address] <ELECTRONICALLY SIGNED> By: Maco Gomez MD, [facility] 09/27/20 1705 1046 1046 Maco Gomez MD, [facility] /EPI
[2020-09-28] VITALS: BP 100/55
[2020-09-28 04:00] VITALS: BP 122/67
[2020-09-28 08:00] VITALS: BP 133/69
--- NOTE | 2020-09-28 08:21 | NUR ---
DC delayed yesterday by cardiology, anticipate dc to home today with [facility]. CM updated HH yesterday of DC today.
[2020-09-28 11:21] VITALS: BP 142/77
[2020-09-28] MEDS ORDERED: AMIODARONE HCL400 MG PO (12:06)
[2020-09-28 13:25] VITALS: BP 127/68
--- NOTE | 2020-09-28 13:49 | NUR ---
ASSUMED CARE OF PT AT 0730. PT A&0X4, BLIND-DENIES ANY PAIN OR SHORTNESS OF BREATH. 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 ON RA SAT UPPER 90'S. PT UP SBA TO BATHROOM. PT HAD TEMP DIALYSIS CATHETER REMOVED BY IR TODAY. OK FOR DISCHARGE FROM NEPHRO AND CARDIO STANDPOINT. AM ASSESSMENT CHARTED. MEDICATIONS PER APR. PT REPOSITIONS SELF. HOURLY ROUNDING OBSERVED. BED IN LOW POSITION. CALL LIGHT WITHIN REACH. WILL CONTINUE PLAN OF CARE.
== END 2020-09-28 14:15 | disposition home health service (06) | DRG 242 ==
LOC: M.ERS 10:34 → M.TBA-CV 11:32 → M.CL 11:32 → M.2W 18:00
PROVIDERS: Emergency Medicine Emergency Medical Services; Internal Medicine; Internal Medicine Cardiovascular Disease; Internal Medicine Nephrology; ADMIT Internal Medicine; ATTEND Internal Medicine
DX: I44.2 Atrioventricular block, complete (principal); N17.0 Acute kidney failure with tubular necrosis; N18.6 End stage renal disease; E87.1 Hypo-osmolality and hyponatremia; E87.2 Acidosis; I12.0 Hypertensive chronic kidney disease with stage 5 chronic kidney disease or end stage renal disease; Z20.822 Contact with and (suspected) exposure to COVID-19; E78.00 Pure hypercholesterolemia, unspecified; E87.5 Hyperkalemia; E11.22 Type 2 diabetes mellitus with diabetic chronic kidney disease; E83.41 Hypermagnesemia; I25.10 Atherosclerotic heart disease of native coronary artery without angina pectoris; H54.8 Legal blindness, as defined in USA; E78.5 Hyperlipidemia, unspecified; I49.5 Sick sinus syndrome; D63.8 Anemia in other chronic diseases classified elsewhere; Z79.899 Other long term (current) drug therapy; Z95.5 Presence of coronary angioplasty implant and graft; I25.2 Old myocardial infarction; I48.91 Unspecified atrial fibrillation